=== PATIENT | female | born 2000 | race Caucasian/White ===

== ENCOUNTER → 2021-04-26 | Outpatient (REF) | payer OTHER | LOC: M WUC 10:03 | PROVIDERS: ATTEND Physician Assistant | DX: N39.0 Urinary tract infection, site not specified (principal) ==

== ENCOUNTER → 2021-07-19 | Outpatient (REF) | payer OTHER ==
[2021-07-19 19:43] LABS: GC DNA AMPLIFICATION NEGATIVE (NEGATIVE)
== END ==
LOC: M SFHCWAGY 16:49
PROVIDERS: ATTEND Advanced Practice Midwife
DX: Z11.3 Encounter for screening for infections with a predominantly sexual mode of transmission (principal)